=== PATIENT | male | born 1940 | race Caucasian/White ===

== ENCOUNTER 2017-07-18 21:45 | Emergency (ER) | payer OTHER ==
[~2017-07-18] VITALS: Ht 185.4 cm; Wt 79.4 kg
[~2017-07-18 21:45] MED LIST: ASPIR-LOW81 MG PO
[2017-07-18] MEDS ORDERED: LISINOPRIL40 MG PO (22:04)
[2017-07-18] MEDS ORDERED: ATORVASTATIN CA40 MG PO (22:04)
[2017-07-18] MEDS ORDERED: CARVEDILOL6.25 MG PO (22:04)
[2017-07-18] MEDS ORDERED: ASPIR 8181 MG PO (22:05)
[2017-07-19] MEDS ORDERED: TRAMADOL HCL50 MG PO (01:07)
== END 2017-07-19 01:33 | disposition home or self-care (01) ==
LOC: ED 21:45
DX: I71.4 Abdominal aortic aneurysm, without rupture (principal); I10 Essential (primary) hypertension; I25.2 Old myocardial infarction; Z87.891 Personal history of nicotine dependence; Z79.899 Other long term (current) drug therapy; Z79.82 Long term (current) use of aspirin
CPT/HCPCS: 74176; 80053; 81001; 83690; 85025; 96374; 96375; 99284; J1170; J2405